=== PATIENT | female | born 1995 | race Caucasian/White ===

== ENCOUNTER 2018-05-06 14:15 | Emergency (ER) | payer MEDICAID ==
[2018-05-06 14:44] VITALS: O2SAT 99
--- NOTE | 2018-05-06 15:49 | ED PDOC ---
HPI: CCC, URI, Sore Throat Time Seen by Provider: 05/06/18 14:51 Chief Complaint (Nursing): Upper Extremity Problem/Injury Chief Complaint (Provider): Cough, Congestion, Sore throat History Per: Blueprint Rep[employer] (Real ID# [id number]) History/Exam Limitations: no limitations Have you had recent travel within the past 21 days to any of the following countries: [place], [place], [place] or [place]?: No Onset/Duration Of Symptoms: Days (x5) Current Symptoms Are (Timing): Still Present Sick Contacts (Context): None Additional Complaint(s): Helen Savage, a 23 year old female, presents to the ED complaining of coughing, congestion, and sore throat for the past 5 days. Patient also notes atraumatic shoulder pain for the last 3 days. She denies chest pain, numbness, tingling sensation, neck pain, sick contacts, and recent traveling. PCP: none provided Past Medical History Reviewed: Historical Data, Nursing Documentation, Vital Signs Vital Signs: Last Vital Signs Temp 98.6 F 05/06/18 14:40 Pulse 108 H 05/06/18 14:40 Resp 20 05/06/18 14:40 BP 148/104 H 05/06/18 14:40 Pulse Ox 99 05/06/18 14:40 - Medical History PMH: No Chronic Diseases - Surgical History Surgical History: No Surg Hx - Family History Family History: States: Unknown Family Hx - Social History Current smoker - smoking cessation education provided: No Ex-Smoker (has not smoked in the last 12 months): No Alcohol: None Drugs: Denies - Immunization History Hx Tetanus Toxoid Vaccination: No Hx Influenza Vaccination: No Hx Pneumococcal Vaccination: No - Home Medications Home Medications: Ambulatory Orders Medication Instructions Recorded Cyclobenzaprine [Cyclobenzaprine 10 mg PO TID #30 tab 03/06/16 HCl] Naproxen [Naprosyn] 1 tab PO BID PRN #25 tab 03/06/16 Benzonatate [Tessalon Perle] 100 mg PO Q8 PRN #12 capsule 05/06/18 Fluticasone Propionate [Flonase] 2 spr NS DAILY PRN #1 bottle 05/06/18 Meloxicam [Mobic] 7.5 mg PO DAILY PRN #10 tab 05/06/18 - Allergies Allergies/Adverse Reactions: Allergies Allergy/AdvReac Type Severity Reaction Status Date / Time No Known Allergies Allergy Unverified 05/06/18 14:40 Review of Systems ROS Statement: Except As Marked, All Systems Reviewed And Found Negative Constitutional: Positive for: Fever (tactile) ENT: Positive for: Nose Congestion, Throat Pain Cardiovascular: Negative for: Chest Pain Respiratory: Positive for: Cough. Negative for: Shortness of Breath Musculoskeletal: Positive for: Shoulder Pain (right). Negative for: Neck Pain Neurological: Negative for: Numbness, Other (tingling) Physical Exam - Reviewed Nursing Documentation Reviewed: Yes Vital Signs Reviewed: Yes - Physical Exam Appears: Positive for: No Acute Distress Skin: Positive for: Normal Color Eye Exam: Positive for: EOMI, Normal appearance, PERRL ENT: Positive for: Pharyngeal Erythema (mild). Negative for: Tonsillar Exudate, Tonsillar Swelling Neck: Positive for: Normal, Painless ROM, Supple Cardiovascular/Chest: Positive for: Regular Rate, Rhythm Respiratory: Positive for: Normal Breath Sounds. Negative for: Wheezing, Respiratory Distress Pulses-Radial (R): 2+ Extremity: Positive for: Tenderness (mid-right lateral shoulder). Negative for: Deformity (right shoulder) Lymphatic: Negative for: Adenopathy Neurologic/Psych: Positive for: Alert, Oriented - ECG O2 Sat by Pulse Oximetry: 99 (RA) Pulse Ox Interpretation: Normal Medical Decision Making Medical Decision Making: Time:153 Initial Plan: --Acetaminophen 975 mg po --X-Ray Shoulder --labs --throat culture 1630 --Rapid strep: negative findings. Upon provider reevaluation, patient is medically stable and requires no further treatment in the ED at this time. Patient will be discharged home with Rx for Tessalon Perle, Flonase, and Mobic. Counseling was provided and all questions were answered regarding diagnosis. There is agreement to discharge plan. Return if symptoms persist or worsen. Clinical Impression: URI; Shoulder Pain Scribe Attestation: Documented byDarío Hahn and Elinor Swain, acting as scribes for Alejandro Miguel PA-C Provider Scribe Attestation: All medical record entries made by the Scribe were at my direction and personally dictated by me. I have reviewed the chart and agree that the record accurately reflects my personal performance of the history, physical exam, medical decision making, and the department course for this patient. I have also personally directed, reviewed, and agree with the discharge instructions and disposition. Disposition - Clinical Impression Clinical Impression: Shoulder pain, Upper respiratory infection - Patient ED Disposition Is Patient to be Admitted: No Counseled Patient/Family Regarding: Studies Performed, Diagnosis, Need For Followup, Rx Given - Disposition Referrals: [facility] [Outside] Fred Olivo MD [Medical Doctor] - Disposition: Routine/Home Disposition Time: 16:30 Condition: STABLE Additional Instructions: HELEN SAVAGE, thank you for letting us take care of you today. Your provider was Miles Gary MD and you were treated for RT SHOULDER PAIN. The emergency medical care you received today was directed at your acute symptoms. If you were prescribed any medication, please fill it and take as directed. It may take several days for your symptoms to resolve. Return to the Emergency Department if your symptoms worsen, do not improve, or if you have any other problems. Please contact your doctor or call one of the physicians/clinics you have been referred to that are listed on the Patient Visit Information form that is included in your discharge packet. Bring any paperwork you were given at discharge with you along with any medications you are taking to your follow up visit. Our treatment cannot replace ongoing medical care by a primary care provider outside of the emergency department. Thank you for allowing the [facility] team to be part of your care today. If you had an X-Ray or CT scan: A Radiologist will review the ED reading if any change in treatment is needed we will contact you. If you had a blood, urine, or wound culture: It will take several days for the results, if any change in treatment is needed we will contact you. If you had an STI test: It will take 48 hours for the results. Please call after 1 week if you have not heard back. Prescriptions: Benzonatate [Tessalon Perle] 100 mg PO Q8 PRN #12 capsule PRN Reason: Cough Fluticasone Propionate [Flonase] 2 spr NS DAILY PRN #1 bottle PRN Reason: Allergy Symptoms Meloxicam [Mobic] 7.5 mg PO DAILY PRN #10 tab PRN Reason: Pain, Mild (1-3) Instructions: Viral Upper Respiratory Infection, Adult (DC) Forms: [facility] (Guamanian), [facility] ED School/Work Excuse
--- NOTE | 2018-05-06 16:16 | RAD ---
PROCEDURE: Radiographs of the Right Shoulder HISTORY: pain COMPARISON: No prior. FINDINGS: BONES: No acute displaced fracture. The distal clavicle and underlying ribs appear intact. JOINTS: No acute dislocation. SOFT TISSUES: Soft tissues appear unremarkable. Several punctate radiopaque densities are identified projecting over the chest, likely related to patient's clothing; correlate clinically. IMPRESSION: No acute displaced fracture or dislocation evident. If symptoms persist or if there is continued clinical concern, x-ray follow-up in 7-10 days should be considered. Several punctate radiopaque densities are identified projecting over the chest, likely related to patient's clothing; correlate clinically.
[2018-05-06 16:42] VITALS: BP 140/85; PULSE 89; RESP 16; TEMP 98.4
== END 2018-05-06 17:13 | disposition home or self-care (01) ==
LOC: H.ER 14:15
DX: J06.9 Acute upper respiratory infection, unspecified (principal); M25.511 Pain in right shoulder

== ENCOUNTER 2018-11-23 08:54 | Emergency (ER) | payer MEDICAID ==
[2018-11-23 08:59] VITALS: BP 131/78; PULSE 83; RESP 18; TEMP 98.7; O2SAT 100; BMI 23.3
[2018-11-23] MEDS ORDERED: Oxycodone/Acetaminophen 5/325 mg Tab PO ONE (09:25)
--- NOTE | 2018-11-23 09:38 | ED PDOC ---
Upper Extremity Pain/Injury Time Seen by Provider: 11/23/18 09:10 Chief Complaint (Nursing): Upper Extremity Problem/Injury Chief Complaint (Provider): Upper Extremity Problem/Injury History Per: Patient History/Exam Limitations: no limitations Onset/Duration Of Symptoms: Days (3) Additional Complaint(s): 23 y/o female presents to the ED complaining of right sided neck pain radiating down her right arm for 3 days. Patient states she had this pain before but it resolves on its own and now the pain is persistent. She report she had this a few years ago which she came here and was given a sling but the pain went away but came back. She states she had a splinter from a month ago on her right humerus that it hurts and tender to touch. Patient states she went to [facility] and was given Motrin 800mg which she took this morning. Patient denies fever, chills, allergies, or any other symptoms at this time. PMD : [facility] Past Medical History Reviewed: Historical Data, Nursing Documentation, Vital Signs Vital Signs: Last Vital Signs Temp 98.7 F 11/23/18 08:58 Pulse 83 11/23/18 08:58 Resp 18 11/23/18 08:58 BP 131/78 11/23/18 08:58 Pulse Ox 100 11/23/18 08:58 Primary Care Provider: Maria Elena Ramos - Surgical History Surgical History: No Surg Hx, Appendectomy - Family History Family History: States: Unknown Family Hx - Immunization History Hx Tetanus Toxoid Vaccination: No Hx Influenza Vaccination: No Hx Pneumococcal Vaccination: No - Home Medications Home Medications: Ambulatory Orders Medication Instructions Recorded Cyclobenzaprine [Cyclobenzaprine 10 mg PO TID #30 tab 03/06/16 HCl] Naproxen [Naprosyn] 1 tab PO BID PRN #25 tab 03/06/16 Benzonatate [Tessalon Perle] 100 mg PO Q8 PRN #12 capsule 05/06/18 Fluticasone Propionate [Flonase] 2 spr NS DAILY PRN #1 bottle 05/06/18 Meloxicam [Mobic] 7.5 mg PO DAILY PRN #10 tab 05/06/18 - Allergies Allergies/Adverse Reactions: Allergies Allergy/AdvReac Type Severity Reaction Status Date / Time No Known Allergies Allergy Verified 11/23/18 09:04 Review of Systems ROS Statement: Except As Marked, All Systems Reviewed And Found Negative Constitutional: Negative for: Fever, Chills Musculoskeletal: Positive for: Neck Pain, Arm Pain (right) Physical Exam - Reviewed Nursing Documentation Reviewed: Yes Vital Signs Reviewed: Yes - Physical Exam Appears: Positive for: Well, Non-toxic, No Acute Distress Head Exam: Positive for: ATRAUMATIC, NORMAL INSPECTION, NORMOCEPHALIC Skin: Positive for: Normal Color, Warm, Dry Eye Exam: Positive for: EOMI, Normal appearance, PERRL ENT: Positive for: Normal ENT Inspection Neck: Positive for: Normal, Painless ROM, Supple Cardiovascular/Chest: Positive for: Regular Rate, Rhythm. Negative for: Murmur Respiratory: Positive for: Normal Breath Sounds. Negative for: Wheezing Gastrointestinal/Abdominal: Positive for: Normal Exam, Soft. Negative for: Tenderness Back: Positive for: Normal Inspection. Negative for: L CVA Tenderness, R CVA Tenderness Extremity: Positive for: Normal ROM (Right humerus with small half of an inch subcutaneous swelling, possible foreign body. neurovascular intact.), Capillary Refill (less than 2 sec), Swelling. Negative for: Other (No open wound, no discharge from skin, no cellulitis, and no invascular intact.) Neurological/Psych: Positive for: Awake, Alert, Normal Tone, Oriented (x3). Negative for: Motor/Sensory Deficits - Laboratory Results Result Diagrams: 11/23/18 12:15 11/23/18 12:15 - ECG O2 Sat by Pulse Oximetry: 100 Medical Decision Making Medical Decision Making: Time:925 Impression: Muscular pain rule out fracture versus foreign body Plan: -Flexeril 10mg PO -Percocet 1 tab PO -x-ray humerus 0930: Patient will need to follow up with surgery. 0956: FINDINGS: BONES: Normal. No fracture or focal lesion. SOFT TISSUES: Normal. OTHER FINDINGS: a.m. Clip projects over the lateral right hemidiaphragm this could be extrinsic to the patient. Patient has underwire bra on. Correlate clinically. IMPRESSION: No osseous abnormality seen. Possible extrinsic metallic clip like appearance projecting over the lateral right hemidiaphragm-may be related to broad. Prior postop changes not excluded- correlate clinically. 1125: Spoke with surgical assist and recommended CT upper extremity to rule out foreign body and abscess. 1325: FINDINGS: BONES: Bone alignment and mineralization are normal. There is no evidence for acute displaced fracture or bone destruction. The joint spaces are preserved. SOFT TISSUES: The periarticular muscles are normal in appearance without evidence for edema or intramuscular hematoma. There is no evidence for radiopaque foreign body. There are metallic artifacts associated with underwire Bra and clips. IMPRESSION: Unremarkable CT of the right arm with intravenous contrast. No evidence for radiopaque foreign body. 1507: Patient was made aware of results, was referral to an orthopedic and ageneral surgeon for outpt follow up. Scribe Attestation: Documented by Mary Mckeon, acting as a scribe for Alex Thakur Provider Scribe Attestation: All medical record entries made by the Scribe were at my direction and personally dictated by me. I have reviewed the chart and agree that the record accurately reflects my personal performance of the history, physical exam, medical decision making, and the department course for this patient. I have also personally directed, reviewed, and agree with the discharge instructions and disposition. Disposition - Clinical Impression Clinical Impression: Muscular pain - Patient ED Disposition Is Patient to be Admitted: No Counseled Patient/Family Regarding: Studies Performed, Diagnosis, Need For Followup - Disposition Referrals: Ivanna Weaver MD [Staff Provider] - Deangelo Hidalgo MD [Staff Provider] - Disposition: Routine/Home Disposition Time: 13:00 Condition: IMPROVED Additional Instructions: follow up with [facility]2 days return to the ED with any worsening or concerning symptoms use warm compresses for the right arm swelling and take motrin for pain as needed follow up with surgeon as an outpatient Instructions: Muscle and Bone Pain (DC) Forms: [employer] (Maltese), [employer] ([place]enezuelan) Print Language: PERSIAN
--- NOTE | 2018-11-23 10:00 | RAD ---
PROCEDURE: Radiographs of the right humerus. HISTORY: possibleforeign body COMPARISON: None. TECHNIQUE: 2 views obtained. FINDINGS: BONES: Normal. No fracture or focal lesion. SOFT TISSUES: Normal. OTHER FINDINGS: a.m. Clip projects over the lateral right hemidiaphragm this could be extrinsic to the patient. Patient has underwire bra on. Correlate clinically. IMPRESSION: No osseous abnormality seen. Possible extrinsic metallic clip like appearance projecting over the lateral right hemidiaphragm-may be related to broad. Prior postop changes not excluded-correlate clinically.
[2018-11-23] MEDS ORDERED: Oxycodone/Acetaminophen 5/325 mg Tab ONE (10:09)
[2018-11-23 12:21] LABS: BASO % 0.3 % (0.0-2.0); EOS # 0.1 K/uL (0.0-0.7); EOS % 0.9 % (0.0-4.0); LYMPH # 1.9 K/uL (1.0-4.3); LYMPH % 22.5 % (20.0-40.0); MEAN CELL VOLUME 92.5 fl (81.0-99.0); MEAN CORPUSCULAR HEMOGLOBIN 30.8 pg (27.0-31.0); MEAN CORPUSCULAR HGB CONC 33.3 g/dL (33.0-37.0); MEAN PLATELET VOLUME 8.1 fl (7.2-11.7); MONO # 0.6 K/uL (0.0-0.8); MONO % 6.7 % (0.0-10.0); NEUT # 5.8 K/uL (1.8-7.0); NEUT % 69.6 % (50.0-75.0); RBC 4.23 Mil/uL (3.80-5.20); RED CELL DISTRIBUTION WIDTH 13.1 % (11.5-14.5); WHITE BLOOD COUNT 8.4 K/uL (4.8-10.8)
[2018-11-23 12:30] LABS: ALB/GLOB RATIO 1.2 (1.0-2.1); ALBUMIN 4.5 g/dL (3.5-5.0); ALT/SGPT 28 U/L (9-52); AST/SGOT 26 U/L (14-36); BLOOD UREA NITROGEN 11 mg/dl (7-17); CALCIUM 9.3 mg/dL (8.4-10.2); GFR NON-AFRICAN AMERICAN > 60
[2018-11-23] MEDS ORDERED: Sodium Chloride 0.9% 50 ML IV ONE (13:03)
[2018-11-23] MEDS ORDERED: Iohexol 300 100 ML IJ ONE (13:03)
--- NOTE | 2018-11-23 14:18 | CT ---
Date of service: 11/23/2018 PROCEDURE: CT of the right arm with intravenous contrast. HISTORY: Right upper ext swelling rule out fb COMPARISON: Plain radiographs performed earlier the same day. TECHNIQUE: Contiguous axial images of the right arm were obtained after administration of intravenous contrast. Coronal and sagittal reformats were generated.. Contrast dosage: 100 mL Omnipaque 300 Radiation dose: Total exam DLP = 483.77 mGy-cm. This CT exam was performed using one or more of the following dose reduction techniques: Automated exposure control, adjustment of the mA and/or kV according to patient size, and/or use of iterative reconstruction technique. FINDINGS: BONES: Bone alignment and mineralization are normal. There is no evidence for acute displaced fracture or bone destruction. The joint spaces are preserved. SOFT TISSUES: The periarticular muscles are normal in appearance without evidence for edema or intramuscular hematoma. There is no evidence for radiopaque foreign body. There are metallic artifacts associated with underwire Bra and clips. IMPRESSION: Unremarkable CT of the right arm with intravenous contrast. No evidence for radiopaque foreign body.
== END 2018-11-23 15:10 | disposition home or self-care (01) ==
LOC: H.ER 08:54
DX: M79.18 Myalgia, other site (principal)
CPT/HCPCS: 73060; 73201; 80053; 81025; 85025; 99284; Q9967